=== PATIENT | female | born 1985 | race Asian ===

== ENCOUNTER 2020-07-17 13:26 | Emergency (ER) | payer MEDICAID, OTHER ==
[~2020-07-17] VITALS: Ht 157.5 cm; Wt 65.8 kg
[2020-07-17 14:41] LABS: Basophils # (auto) 0.2 10 ^3/uL (0-0.2); Eosinophils # (auto) 0.1 10 ^3/uL (0-0.8); Eosinophils % (auto) 0.7 % (0.0-7.0); Monocytes # (auto) 0.7 10 ^3/uL (0-1.3); Nucleated Red Blood Cells % 0.1 %; White Blood Cell 8.1 10^3/uL (4.4-10.8)
[2020-07-17 14:43] LABS: Basophils % (auto) 2.2 % (0.0-2.0); Hematocrit 22.8 % (36.0-46.0); Lymphocytes # (auto) 2.2 10 ^3/uL (0.4-5.4); Lymphocytes % (auto) 27.5 % (10.0-50.0); Mean Corpuscular Hemoglobin 21.2 pg (28.0-32.0); Mean Corpuscular Hgb Conc. 30.6 g/dL (32.0-36.0); Mean Corpuscular Volume 69.1 fL (80.0-100.0); Monocytes % (auto) 8.3 % (0.0-12.0); Neutrophils % (auto) 61.3 % (37.0-80.0); Platelet Count (auto) 536 10^3/uL (140-450)
[2020-07-17 14:44] LABS: Albumin 3.8 g/dL (3.4-5.0); Calcium 8.3 mg/dL (8.5-10.1); Potassium 3.6 mmol/L (3.5-5.1)
[2020-07-17 14:47] LABS: BUN/Creatinine Ratio 11.4; Bilirubin, Total 0.3 mg/dL (0.2-1.0)
[2020-07-17 14:48] LABS: Red Cell Distribution Width 33.2 % (11.8-14.3)
[2020-07-17] MEDS ORDERED: FERROUS SULFATE 325 MG TAB PO ONE (15:15)
[2020-07-17 18:59] VITALS: BP 112/76
[2020-07-17 19:15] VITALS: BP 118/65
[2020-07-17 20:15] VITALS: BP 119/77
== END 2020-07-17 20:35 | disposition home or self-care (01) ==
LOC: ER 13:26
DX: D64.9 Anemia, unspecified (principal); D25.9 Leiomyoma of uterus, unspecified
CPT/HCPCS: 36415; 36430; 80053; 85025; 86850; 86900; 86901; 93005; 99285; P9016; 86922